=== PATIENT | male | born 2000 | race Native Hawaiian/Other Pacific Islander ===

== ENCOUNTER 2020-01-06 23:37 | Emergency (ER) | payer OTHER ==
[~2020-01-06] VITALS: Ht 177.8 cm; Wt 87.0 kg
[2020-01-07] MEDS ORDERED: ACETAMINOPHEN TAB 650MG DOSE (2X325MG) PO ONE
[2020-01-07] MEDS ORDERED: IBUPROFEN 800 MG TAB PO ONE
[2020-01-07 00:43] LABS: INFLUENZA A AMPLIFICATION NEGATIVE (NEGATIVE); INFLUENZA B AMPLIFICATION NEGATIVE (NEGATIVE)
[2020-01-07 01:26] VITALS: BP 126/74
--- NOTE | 2020-01-07 08:00 | REP ---
PA and lateral chest: There are no comparisons. The lung roberts are clear. The cardiac size is normal. The fatou, mediastinum, and skeletal structures are unremarkable. Impression: Negative PA and lateral chest. Electronically Signed by Mani Knowles MD 01/07/2020 07:51 A
== END 2020-01-07 01:50 | disposition home or self-care (01) ==
LOC: M ED 23:37
DX: J06.9 Acute upper respiratory infection, unspecified (principal); B34.9 Viral infection, unspecified

== ENCOUNTER 2020-01-07 21:08 | Emergency (ER) | payer OTHER ==
[~2020-01-07] VITALS: Ht 177.8 cm; Wt 92.7 kg
[2020-01-08 01:29] VITALS: BP 134/78
== END 2020-01-08 01:30 | disposition home or self-care (01) ==
LOC: M ED 21:08
DX: J06.9 Acute upper respiratory infection, unspecified (principal); B97.81 Human metapneumovirus as the cause of diseases classified elsewhere

== ENCOUNTER 2020-08-02 03:02 | Emergency (ER) | payer OTHER ==
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
[2020-08-02 05:22] VITALS: BP 110/59
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
--- NOTE | 2020-08-03 13:08 | ECGEPIP ---
[facility] - ED Test Date: 2020-08-02 Pat Name: KAYLYNN BULLOCK Department: Room: - Gender: Male [employer]: : 2000 Requested By: AYLEEN Boyd Order Number: [id number] Reading MD: Abigail Joya Measurements Intervals [place] Rate: 82 P: 66 CA: 176 QRS: 79 QRSD: 97 T: 51 QT: 356 QTc: 416 Interpretive Statements SINUS RHYTHM No prior Electronically Signed on 08-03-2020 13:08:40 EDT by Abigail Joya
== END 2020-08-02 05:27 | disposition home or self-care (01) ==
LOC: M ED 03:02
DX: S80.212A Abrasion, left knee, initial encounter (principal); Y04.8XXA Assault by other bodily force, initial encounter; Y92.9 Unspecified place or not applicable

== ENCOUNTER 2022-07-04 21:56 | Emergency (ER) | payer OTHER ==
[~2022-07-04] VITALS: Ht 177.8 cm; Wt 104.9 kg
[2022-07-04 23:22] LABS: BASO % 0.5 % (0.0-1.0); EOS # 0.2 10^3/uL (0.0-0.5); EOS % 2.6 % (0.0-3.0); HEMATOCRIT 43.7 % (42.0-52.0); HEMOGLOBIN 14.7 g/dl (13.5-17.5); LYMPH # 1.3 10^3/uL (1.5-5.0); LYMPH % 19.5 % (24.0-44.0); MEAN CORPUSCULAR HEMOGLOBIN 29.1 pg (27.0-33.0); MEAN CORPUSCULAR HGB CONC 33.6 g/dl (32.0-36.5); MEAN CORPUSCULAR VOLUME 86.4 fl (80.0-96.0); MONO # 0.7 10^3/uL (0.0-0.8); MONO % 10.4 % (2.0-8.0); NEUTROPHILS # 4.3 10^3/uL (1.5-8.5); NEUTROPHILS % 66.7 % (36.0-66.0); PLATELET COUNT, AUTOMATED 321 10^3/uL (150-450); RED BLOOD COUNT 5.06 10^6/uL (4.30-6.10); WHITE BLOOD COUNT 6.5 10^3/uL (4.0-10.0)
[2022-07-04 23:39] LABS: BLOOD UREA NITROGEN 18 MG/DL (7-18); CARBON DIOXIDE LEVEL 28 MEQ/L (21-32); CHLORIDE LEVEL 104 MEQ/L (98-107); CREATININE FOR GFR 1.11 MG/DL (0.70-1.30); GLOMERULAR FILTRATION RATE > 60.0 (>60); GLUCOSE, FASTING 106 MG/DL (70-100); POTASSIUM SERUM 4.1 MEQ/L (3.5-5.1); SODIUM LEVEL 137 MEQ/L (136-145)
[2022-07-05 00:08] LABS: CK-MB VALUE MASS 3.5 NG/ML (<3.6); MB/CK RELATIVE INDEX 0.3 (< OR =4)
[2022-07-05] MEDS ORDERED: predniSONE 20 MG TAB PO ONE (02:10)
[2022-07-05] MEDS ORDERED: ALBUTEROL 90 MCG/ACT 8GM HFA INHALER INH ONE (02:10)
[2022-07-05] MEDS ORDERED: VENTAER INH (02:47)
[2022-07-05] MEDS ORDERED: PRED20TA PO (02:47)
[2022-07-05 03:02] VITALS: BP 141/87
== END 2022-07-05 03:04 | disposition home or self-care (01) ==
LOC: M ED 21:56
DX: U07.1 COVID-19 (principal); R06.02 Shortness of breath
CPT/HCPCS: 36415; 71045; 80048; 82550; 82553; 84484; 85025; 85379; 87486; 87581; 87633; 87798; 93005; 94640; 99284; J7512